=== PATIENT | female | born 1990 | race Caucasian/White ===

== ENCOUNTER 2018-11-09 16:47 | Emergency (ER) | payer OTHER ==
[2018-11-09] MEDS ORDERED: Sodium Chloride 0.9% 1000 ML 1,000 ML IV STA (17:14)
--- NOTE | 2018-11-09 17:17 | ERPHSYRPT ---
- History of Present Illness Time Seen by Provider: 11/09/18 17:14 Historian: patient Exam Limitations: no limitations Patient Subjective Stated Complaint: flank pain on the left since noon today. painful and frequent urination. Triage Nursing Assessment: alert and in no distress. pain on left flank area.started at noon today,. frequency and dysuria. Physician History: 28-year-old white female arrives with complaint of left flank pain symptoms since this morning positive nausea no vomiting positive dysuria no hematuria pain is described as sharp stabbing. Past medical history negative Past surgical history x2 Social history denies tobacco alcohol or illicit drug use Timing/Duration: today Activities at Onset: none Quality: sharpness, stabbing Abdominal Pain Onset Location: flank (left flank) Pain Radiation: no radiation Severity of Pain-Max: moderate Severity of Pain-Current: moderate Modifying Factors: Improves With: nothing Associated Symptoms: back (left flank pain), nausea, No chest pain, No diaphoresis, No diarrhea, No fever/chills, No fatigue, No headache, No heartburn , No loss of appetite, No neck pain, No rash, No shortness of breath, No syncope , No vomiting, No weakness Previous symptoms: no prior history Allergies/Adverse Reactions: Penicillins Allergy (Severe, Verified 11/09/18 17:39) "makes my throat swell up" Home Medications: Vits W-Ca,Fe,FA(<1Mg) [] 1 each PO DAILY 03/23/16 [History] Hx Pneumococcal Vaccination/Date Given: (unknown) - Review of Systems Constitutional: No Fever, No Chills Eyes: No Symptoms Ears, Nose, & Throat: No Symptoms Respiratory: No Cough, No Dyspnea Cardiac: No Chest Pain, No Edema, No Syncope Abdominal/Gastrointestinal: Nausea, No Abdominal Pain, No Vomiting, No Diarrhea , No Constipation, No Hematemesis, No Hematochezia, No Melena, No Dysphagia, No Appetite Changes Genitourinary Symptoms: Dysuria, Flank Pain (left flank pain), No Frequency, No Hematuria, No Hesitancy, No Incontinence, No Urgency, No Urinary Retention, No Menorrhagia, No , No Vaginal Bleeding, No Vaginal Discharge, No Vaginal Itching Musculoskeletal: Back Pain (left flank pain), No Arthralgias, No Neck Pain, No Deformity, No Fall, No Injury, No Joint Redness, No Joint Pain, No Joint Swelling, No Myalgias Skin: No Rash Neurological: No Symptoms Psychological: No Symptoms Endocrine: No Symptoms All Other Systems: Reviewed and Negative - Past Medical History Pertinent Past Medical History: Yes Neurological History: No Pertinent History ENT History: No Pertinent History Cardiac History: Other Respiratory History: No Pertinent History Endocrine Medical History: No Pertinent History Musculoskeletal History: No Pertinent History GI Medical History: No Pertinent History History: No Pertinent History Psycho-Social History: No Pertinent History Female Reproductive Disorders: No Pertinent History Other Medical History: rapid HR - Past Surgical History Past Surgical History: No Neuro Surgical History: No Pertinent History Cardiac: No Pertinent History Respiratory: No Pertinent History Gastrointestinal: No Pertinent History Genitourinary: No Pertinent History Musculoskeletal: No Pertinent History Female Surgical History: Section - Social History Smoking Status: Never smoker Exposure to second hand smoke: No Drug Use: none Patient Lives Alone: No - Female History Hx Now: No - Nursing Vital Signs Nursing Vital Signs: Initial Vital Signs Temperature 98.3 F 11/09/18 17:04 Pulse Rate 78 11/09/18 17:04 Respiratory Rate 18 11/09/18 17:04 Blood Pressure 111/81 11/09/18 17:04 O2 Sat by Pulse Oximetry 99 11/09/18 17:04 Pain Scale Pain Intensity 4 - Physical Exam General Appearance: mild distress, alert Eye Exam: PERRL/EOMI, eyes nml inspection Ears, Nose, Throat Exam: normal ENT inspection, pharynx normal, moist mucous membranes Neck Exam: normal inspection (this), non-tender, supple, full range of motion Respiratory Exam: normal breath sounds, lungs clear, No respiratory distress Cardiovascular Exam: regular rate/rhythm, capillary refill <2 sec Gastrointestinal/Abdomen Exam: soft, No tenderness, No mass Back Exam: normal inspection, normal range of motion, No CVA tenderness, No vertebral tenderness Extremity Exam: normal inspection, normal range of motion, pelvis stable Neurologic Exam: alert, oriented x 3, cooperative, 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 Probable enteritis, normal appendix. Small fatty umbilical hernia remaining abdomen/pelvis negative. Also scattered centimeters/subcentimeter mid mesenteric nodes with minimal stranding possible mesenteric adenitis) Ordered Tests: Active Orders 24 hr Category Date Time Status IV Insertion STAT Care 11/09/18 17:14 Active ABDOMEN AND PELVIS W/0 CONTRAS [CT] Stat Exams 11/09/18 18:16 Taken CBC W DIFF Stat Lab 11/09/18 17:30 Completed CMP Stat Lab 11/09/18 17:30 Completed HCG QUALITATIVE,SERUM Stat Lab 11/09/18 17:30 Completed UA W/RFX UR CULTURE Stat Lab 11/09/18 17:30 Completed Medication Summary Generic Name Dose Route Start Last Admin Trade Name Freq PRN Reason Stop Dose Admin Morphine Sulfate 4 mg 11/09/18 19:38 Morphine Sulfate 4 Mg Inj IV 11/09/18 19:39 STAT ONE Discontinued Medications Generic Name Dose Route Start Last Admin Trade Name Freq PRN Reason Stop Dose Admin Sodium Chloride 1,000 mls @ 999 mls/hr 11/09/18 17:14 11/09/18 17:34 Sodium Chloride 0.9% 1000 Ml IV 11/09/18 18:14 999 mls/hr .Q1H1M STA Administration Sodium Chloride Confirm 11/09/18 17:33 Sodium Chloride 0.9% 1000 Ml Administered 11/09/18 17:34 Dose 1,000 mls @ ud .ROUTE .STK-MED ONE Morphine Sulfate 4 mg 11/09/18 17:38 11/09/18 17:44 Morphine Sulfate 4 Mg Inj IV 11/09/18 17:39 4 mg STAT ONE Administration Morphine Sulfate Confirm 11/09/18 17:41 Morphine Sulfate 4 Mg Inj Administered 11/09/18 17:42 Dose 4 mg .ROUTE .STK-MED ONE Ondansetron HCl 4 mg 11/09/18 17:38 11/09/18 17:44 Zofran 4 Mg/2 Ml Vial IV 11/09/18 17:39 4 mg STAT ONE Administration Ondansetron HCl Confirm 11/09/18 17:41 Zofran 4 Mg/2 Ml Vial Administered 11/09/18 17:42 Dose 4 mg .ROUTE .STK-MED ONE Potassium Chloride 40 meq 11/09/18 19:35 Klor Con 10 Meq PO 11/09/18 19:36 STAT ONE Lab/Rad Data: Laboratory Result Diagrams 11/09/18 17:30 11/09/18 17:30 Laboratory Results 11/09/18 11/09/18 11/09/18 Range/Units 17:30 17:30 17:30 WBC (4.0-10.5) K/mm3 RBC (4.1-5.4) M/mm3 Hgb (12.0-16.0) gm/dl Hct (35-47) % MCV (78-100) fl MCH (26-32) pg MCHC (32-36) g/dl RDW (11.5-14.0) % Plt Count (150-450) K/mm3 MPV (6-9.5) fl Gran % (36.0-66.0) % Eos # (Auto) (0-0.5) Absolute Lymphs (auto) (1.0-4.6) Absolute Monos (auto) (0.0-1.3) Lymphocytes % (24.0-44.0) % Monocytes % (0.0-12.0) % Eosinophils % (0.00-5.0) % Basophils % (0.0-0.4) % Absolute Granulocytes (1.4-6.9) Basophils # (0-0.4) Sodium 142 (137-145) mmol/L Potassium 3.2 L (3.5-5.1) mmol/L Chloride 108 H (98-107) mmol/L Carbon Dioxide 22 (22-30) mmol/L Anion Gap 14.8 (5-15) MEQ/L BUN 7 (7-17) mg/dL Creatinine 0.47 L (0.52-1.04) mg/dL Estimated GFR > 60.0 ML/MIN Glucose 97 (74-106) mg/dL Calcium 9.3 (8.4-10.2) mg/dL Total Bilirubin 0.30 (0.2-1.3) mg/dL AST 32 (14-36) U/L ALT 37 H (0-35) U/L Alkaline Phosphatase 75 (38-126) U/L Serum Total Protein 7.7 (6.3-8.2) g/dL Albumin 4.3 (3.5-5.0) g/dL Serum , Qual NEGATIVE (Negative) Urine Color STRAW (YELLOW) Urine Appearance CLEAR (CLEAR) Urine pH 6.0 (5-6) Ur Specific [place] 1.004 (1.005-1.025) Urine Protein NEGATIVE (Negative) Urine Ketones NEGATIVE (NEGATIVE) Urine Blood MODERATE (0-5) [place]/ul Urine Nitrite NEGATIVE (NEGATIVE) Urine Bilirubin NEGATIVE (NEGATIVE) Urine Urobilinogen NEGATIVE (0-1) mg/dL Ur Leukocyte Esterase NEGATIVE (NEGATIVE) Urine WBC (Auto) NONE (0-5) /HPF Urine RBC (Auto) NONE (0-2) /HPF U Epithel Cells (Auto) RARE (FEW) /HPF Urine Bacteria (Auto) NONE (NEGATIVE) /HPF Urine Mucus (Auto) SLIGHT (NEGATIVE) /HPF Urine Culture Reflexed NO (NO) Urine Glucose NEGATIVE (NEGATIVE) mg/dL 11/09/18 Range/Units 17:30 WBC 5.0 (4.0-10.5) K/mm3 RBC 4.22 (4.1-5.4) M/mm3 Hgb 9.7 L (12.0-16.0) gm/dl Hct 31.6 L (35-47) % MCV 74.9 L (78-100) fl MCH 22.9 L (26-32) pg MCHC 30.7 L (32-36) g/dl RDW 16.8 H (11.5-14.0) % Plt Count 377 (150-450) K/mm3 MPV 10.5 H (6-9.5) fl Gran % 56.3 (36.0-66.0) % Eos # (Auto) 0.06 (0-0.5) Absolute Lymphs (auto) 1.55 (1.0-4.6) Absolute Monos (auto) 0.55 (0.0-1.3) Lymphocytes % 31.1 (24.0-44.0) % Monocytes % 11.0 (0.0-12.0) % Eosinophils % 1.2 (0.00-5.0) % Basophils % 0.4 (0.0-0.4) % Absolute Granulocytes 2.81 (1.4-6.9) Basophils # 0.02 (0-0.4) Sodium (137-145) mmol/L Potassium (3.5-5.1) mmol/L Chloride (98-107) mmol/L Carbon Dioxide (22-30) mmol/L Anion Gap (5-15) MEQ/L BUN (7-17) mg/dL Creatinine (0.52-1.04) mg/dL Estimated GFR ML/MIN Glucose (74-106) mg/dL Calcium (8.4-10.2) mg/dL Total Bilirubin (0.2-1.3) mg/dL AST (14-36) U/L ALT (0-35) U/L Alkaline Phosphatase (38-126) U/L Serum Total Protein (6.3-8.2) g/dL Albumin (3.5-5.0) g/dL Serum , Qual (Negative) Urine Color (YELLOW) Urine Appearance (CLEAR) Urine pH (5-6) Ur Specific [place] (1.005-1.025) Urine Protein (Negative) Urine Ketones (NEGATIVE) Urine Blood (0-5) Rosales/ul Urine Nitrite (NEGATIVE) Urine Bilirubin (NEGATIVE) Urine Urobilinogen (0-1) mg/dL Ur Leukocyte Esterase (NEGATIVE) Urine WBC (Auto) (0-5) /HPF Urine RBC (Auto) (0-2) /HPF U Epithel Cells (Auto) (FEW) /HPF Urine Bacteria (Auto) (NEGATIVE) /HPF Urine Mucus (Auto) (NEGATIVE) /HPF Urine Culture Reflexed (NO) Urine Glucose (NEGATIVE) mg/dL - Progress Progress: improved Progress Note: 11/09/18 17:22 This is a 28-year-old white female arrives with complaint of left flank pain which is described as sharp and stabbing symptoms since this morning she states she's had some nausea no vomiting she has had some dysuria no hematuria. Patient is offered pain medication she does not want any at this time of also offered her Zofran for nausea she does not want this as well. Will go ahead and obtain appropriate laboratory studies the patient normal saline 1 L. 11/09/18 19:39 Patient was normal CBC hemoglobin and hematocrit are 9.7 31.6 respectively urinalysis some blood but no red cells hCG is negative chemistry essentially normal Patient's CT of the abdomen remarkable for several small bowel loops in the left abdomen appear with bowel wall thickening probable enteritis. Normal appendix. Small fatty umbilical hernia there is also scattered centimeters/ subcentimeter mid mesenteric nodes with minimal stranding possible mesenteric adenitis Patient improved not completely pain-free with normal saline morphine 4 mg IV and Zofran. Will plan to give patient an additional 4 mg of morphine in the home with [place] and Zofran place patient on clear fluids patient to followup with her family . Fanny if problems - Departure Departure Disposition: Home Clinical Impression: Left flank pain, Enteritis, Mesenteric adenitis Condition: Fair Critical Care Time: No Referrals: JANAK PANIAGUA [Primary Care Provider] - Additional Instructions: Return home. Plenty of fluids. Clear fluids 24-48 hours if abdominal or flank pain. [place] as prescribed as needed for left flank pain. Zofran as prescribed as needed for nausea. Followup with your family . Fanny for acute distress or for severe symptoms. Prescriptions: Hydrocodone/APAP 5-325 Tab^^^ [[place] 5-325 Tablet^^^] 1 tab PO Q6HPRN PRN #10 tablet MDD 6 PRN Reason: Pain Ondansetron ODT 4 MG [Zofran Odt 4 mg] 4 mg PO Q6H PRN PRN #10 tab.rapdis PRN Reason: nausea and vomiting
[2018-11-09] MEDS ORDERED: Sodium Chloride 0.9% 1000 ML 1,000 ML ONE (17:33)
[2018-11-09] MEDS ORDERED: Zofran 4 MG/2 ML VIAL IV ONE (17:38)
[2018-11-09] MEDS ORDERED: MORPHINE SULFATE 4 MG INJ IV ONE ×2 (17:38→19:38)
[2018-11-09] MEDS ORDERED: Zofran 4 MG/2 ML VIAL ONE (17:41)
[2018-11-09] MEDS ORDERED: MORPHINE SULFATE 4 MG INJ ONE ×2 (17:41→19:46)
[2018-11-09 17:48] LABS: ALBUMIN 4.3 g/dL (3.5-5.0); ALKALINE PHOSPHATASE 75 U/L (38-126); ANION GAP 14.8 MEQ/L (5-15); BLOOD UREA NITROGEN 7 mg/dL (7-17); CHLORIDE 108 mmol/L (98-107); Calcium 9.3 mg/dL (8.4-10.2); Carbon Dioxide 22 mmol/L (22-30); Creatinine 1 0.47 mg/dL (0.52-1.04); Glucose 97 mg/dL (74-106); Potassium 3.2 mmol/L (3.5-5.1); SGOT/AST 32 U/L (14-36); SGPT/ALT 37 U/L (0-35); SODIUM 142 mmol/L (137-145); Total Protein 7.7 g/dL (6.3-8.2)
[2018-11-09 17:59] LABS: Appearance CLEAR (CLEAR); Bilirubin NEGATIVE (NEGATIVE); Blood MODERATE Ery/ul (0-5); Epithelial Cells RARE /HPF (FEW); Glucose NEGATIVE (NEGATIVE); Ketones NEGATIVE (NEGATIVE); Leukocyte Esterase NEGATIVE (NEGATIVE); Mucus SLIGHT /HPF (NEGATIVE); Nitrite NEGATIVE (NEGATIVE); Protein,Urine Dip NEGATIVE (Negative); Specific Gravity 1.004 (1.005-1.025); Urobilinogen NEGATIVE mg/dL (0-1)
[2018-11-09 18:05] LABS: BASOPHIL % 0.4 % (0.0-0.4); Basophil (Absolute #) 0.02 (0-0.4); Eosinophil % 1.2 % (0.00-5.0); Eosinophil (Absolute #) 0.06 (0-0.5); Granulocyte Absolute (ANC) 2.81 (1.4-6.9); Granulocytes % 56.3 % (36.0-66.0); Hematocrit 31.6 % (35-47); Hemoglobin 9.7 gm/dl (12.0-16.0); Lymphocyte (Absolute #) 1.55 (1.0-4.6); Lymphocytes % 31.1 % (24.0-44.0); Mean Cell Volume 74.9 fl (78-100); Mean Corpuscular Hgb Concent. 30.7 g/dl (32-36); Mean Platelet Volume 10.5 fl (6-9.5); Monocyte (Absolute #) 0.55 (0.0-1.3); Platelet Count 377 K/mm3 (150-450); Red Blood Count 4.22 M/mm3 (4.1-5.4); Red Cell Distribution Width 16.8 % (11.5-14.0)
[2018-11-09 18:08] LABS: Mean Corpuscular Hemoglobin 22.9 pg (26-32)
[2018-11-09 18:31] VITALS: PULSE 74
[2018-11-09 19:35] VITALS: O2SAT 99
[2018-11-09] MEDS ORDERED: Klor Con 10 MEQ PO ONE ×2 (19:35→19:38)
[2018-11-09 19:47] VITALS: BP 106/64
[2018-11-10 03:48] LABS: Slide Review 1 YES
--- NOTE | 2018-11-10 08:49 | XRAY ---
Indication: Left flank pain. Multiple contiguous axial images obtained through the abdomen and pelvis without contrast as ordered. Comparison: None Lung bases demonstrates minimal fibrosis/scarring. No infiltrate or effusion. Heart is not enlarged. Noncontrasted stomach and bowel loops appear nonobstructed. Several small bowel loops in the left abdomen demonstrates mild fluid distention with wall thickening favoring enteritis. Normal appendix. There are scattered centimeter/subcentimeter mid abdomen mesenteric nodes with minimal stranding, possible adenitis. No free fluid/air. Remaining liver, gallbladder, pancreas, spleen, adrenal glands, kidneys, ureters, bladder, uterus, and aorta appear unremarkable for noncontrast exam. Osseous structures intact with mild double curvature scoliosis. Small fatty umbilical hernia. Impression: 1. Fluid distended small bowel loops with wall thickening favoring enteritis. 2. Scattered small mesenteric nodes with stranding favoring mesenteric adenitis. 3. Incidental fatty umbilical hernia. CT DI 22.87
== END 2018-11-09 19:54 | disposition home or self-care (01) ==
LOC: ED 16:47
DX: R10.9 Unspecified abdominal pain (principal); I88.0 Nonspecific mesenteric lymphadenitis; K52.9 Noninfective gastroenteritis and colitis, unspecified; K42.9 Umbilical hernia without obstruction or gangrene
CPT/HCPCS: 36000; 36415; 74176; 80053; 81001; 81025; 85025; 96360; 96361; 96365; 96374; 96375; 99284; J2270; J2405; A9270-GY

== ENCOUNTER 2022-12-03 06:23 | Day surgery (SDC) | payer OTHER ==
[2022-12-03] MEDS ORDERED: CLINDAMYCIN-D5W 900 MG/50 ML*** 900 MG/50 ML BAG IV STA (06:32)
[2022-12-03 06:38] LABS: HCG URINE TEST NEGATIVE (NEGATIVE)
[2022-12-03] MEDS ORDERED: Lactated Ringers 1,000 ML IV SCH (07:00)
[2022-12-03] MEDS ORDERED: CLINDAMYCIN-D5W 900 MG/50 ML*** 900 MG/50 ML BAG IV ONE (07:06)
[2022-12-03] MEDS ORDERED: Lactated Ringers 1,000 ML IV ONE ×2 (07:06→09:35)
[2022-12-03] MEDS ORDERED: Versed 2 MG/2 ML Injection ONE (09:26)
[2022-12-03] MEDS ORDERED: SUBLIMAZE 100 MCG/2 ML ONE ×2 (09:26→10:10)
[2022-12-03] MEDS ORDERED: Quelicin Fliptop 200 MG/10 ML ONE (09:27)
[2022-12-03] MEDS ORDERED: DEXMEDETOMIDINE 80 MCG/20ML-NS IV ONE (09:27)
[2022-12-03] MEDS ORDERED: Decadron 4 MG INJ ONE (09:27)
[2022-12-03] MEDS ORDERED: TORAdol 30 mg Injection ONE (09:27)
[2022-12-03] MEDS ORDERED: Zofran 4 MG/2 ML VIAL ONE (09:27)
[2022-12-03] MEDS ORDERED: Xylocaine-Mpf 2% 5 Ml Vial ONE (09:27)
[2022-12-03] MEDS ORDERED: DIPRIVAN 200 MG/20 ML IV ONE (09:27)
[2022-12-03] MEDS ORDERED: Transderm Scop 1.5MG Patch TOP PRN (09:28)
[2022-12-03] MEDS ORDERED: OFIRMEV 100 ML IV ONE (09:34)
[2022-12-03] MEDS ORDERED: Pre-Attached Lta Kit TP ONE (09:34)
[2022-12-03] MEDS ORDERED: Marcaine Mpf 0.5% Vial 30 Ml ONE (09:35)
[2022-12-03] MEDS ORDERED: Xylocaine 1% Vial 30 ML PF IJ ONE (09:35)
--- NOTE | 2022-12-03 11:18 | XRAY ---
Indication: Left foot navicular resection and posterior tibial tendon debridement. Intraoperative fluoroscopy provided for 1 minute 3 seconds. 9 digital spot images submitted for interpretation ultimately demonstrate partial resection medial aspect navicular bone and instrumentation mid foot. Correlate with intraoperative findings/report.
[2022-12-03] MEDS ORDERED: Hydromorphone 1 mg/ml Injection ONE (11:51)
[2022-12-03 12:08] VITALS: O2SAT 97
[2022-12-03] MEDS ORDERED: Zofran 4 MG/2 ML VIAL IV STA (12:20)
[2022-12-03 12:39] VITALS: BP 101/65; PULSE 68
--- NOTE | 2022-12-03 14:14 | XRAY ---
One minute and 3 seconds of fluoroscopy was used in surgery for a left foot navicular resection and posterior tibial tendon debridement.
--- NOTE | 2022-12-03 15:27 | OP ---
SURGERY DATE/TIME: 12/03/2022 0939 PREOPERATIVE DIAGNOSES: 1) Left foot pain. 2) Posterior tibial tendon dysfunction left foot. 3) Os naviculare left foot. POSTOPERATIVE DIAGNOSES: 1) Left foot pain. 2) Posterior tibial tendon dysfunction left foot. 3) Os naviculare left foot. PROCEDURES: 1) Resection of os naviculare. 2) Debridement of posterior tibial tendon with advancement. 3) Cyst curettage navicular. SURGEON: Leroy Neal DPM. RADIATION OFFICER: None. ANESTHESIA: General. HEMOSTASIS: Thigh tourniquet set 300 mm of Mercury for approximately 25 total tourniquet minutes. MATERIALS: Two - 1.45 JuggerKnot with BroadBand, 2-0 Vicryl, 4-0 Monocryl, 3-0 Nylon, 4-0 PDS. INJECTABLES: 30 cc of 1:1 mixture of 1% lidocaine plain and 0.5% bupivacaine plain injected in an ankle block-type fashion to the left ankle. INDICATION FOR SURGERY: Rena is a very pleasant 32-year-old female well-known to my service for pain at the insertion of the posterior tibial tendon as well as symptoms similar to that of stage I posterior tibial tendon dysfunction. The patient did have some pinpoint pain at the insertion of the posterior tibial tendon as well as with compression of the navicular. On x-ray it did appear to be cystic in nature. However, MRI was obtained demonstrating no significant inflammation or disease of the posterior tibial tendon or to the cystic formation of the navicular. At that time discussion was held with the patient due to the fact that she has failed immobilization, physical therapy and multiple other conservative therapies in regards to the potential for success for operation. Given the patient's nonradiographic appearance of diseased tendon or cyst formation within the navicular, or an os trigonum on x-ray or os naviculare on x-ray, the patient wished to proceed with surgical intervention if there was a possibility this would help. Given the patient's clinical inspection, I do believe that surgery will help and there is some degree of at least insertional posterior tibial tendon dysfunction as well as potential for cyst formation. All risks, complications and benefits had been discussed with the patient including but not limited to infection, hematoma, seroma, possibility of delayed wound healing or nonwound healing and possibility of failure of surgical intervention, possibility of surgical intervention at a later date had been discussed. The patient also does have the risk of delayed tendon to bone interface as well as delayed skin healing. The patient understands all of these risks. Plenty of time was allowed for the patient to ask questions which were answered to her apparent satisfaction. It is with that we decided to proceed. DESCRIPTION OF PROCEDURE AND FINDINGS: The patient is brought into the OR and placed on the OR table in the supine position. At this time general anesthesia was administered until the patient was sedated. A well-padded thigh tourniquet was applied to the patient's left thigh and the tourniquet was set to 300 mm of Mercury. At this time, the left lower extremity was prepped and draped in the typical sterile fashion and lowered onto the surgical field. At this time attention was directed under fluoroscopic guidance and naviculare landmarks were identified and a linear incision was carried down following the path of the posterior tibial tendon. At this time careful dissection was carried down to the level of the tenosynovium of the posterior tibial tendon being careful not to damage any neurovascular structures along the way. At this time the tenosynovium was identified and some yellowing was seen at the insertion of the posterior tibial tendon at the navicular. At this time tenosynovitis was resected and handed off the field. At this time the tendon was reflected off of the navicular which was fairly prominent. A sagittal saw 18 mm in size was utilized to resect a portion of the naviculare. Under fluoroscopic guidance the cyst was identified within the navicular. Bone was probed in multiple locations using a Owen. At the proximal extent of the bone there was no fairly hard bone. However once getting to the suspected cyst formation, the bone was extremely soft and the Owen passed through the cystic formation. From that standpoint decision was made to curettage the cyst. We also utilized the footprint of the cyst to anchor the tendon at the end of the case. Following this the 10 blade was utilized to partially split the posterior tibial tendon. Any diseased nonviable tendon was resected and a 4-0 PDS was utilized to repair the tendon at this time. A 1.5 JuggerKnot was introduced under fluoroscopic guidance making sure not to damage any neurovascular structures or violate the joint. At this time the two anchors were then utilized to reapproximate and bring the posterior tibial tendon into the footprint of the cyst. Following this the surgical site was cleansed with sterile saline. 2-0 Vicryl was utilized to close the capsule, 4-0 Monocryl was utilized to close the subcutaneous skin and 3-0 Nylon was utilized in a horizontal mattress-type fashion to coapt the skin edges. A dressing consisting of Betadine, Adaptic, 4x4 and a well-padded posterior splint with Sugar-Tong was applied to the patient's left lower extremity with the foot orthogonal relative to longitudinal axis of the leg. The patient was then reversed from anesthesia and returned to the postoperative anesthesia care unit with vital signs stable and vascular status intact. The patient handled the anesthesia as well as procedure without significant complication. Postoperative orders as indicated in the patient's discharge chart.
== END 2022-12-03 12:52 | disposition home or self-care (01) ==
LOC: SDC 06:23
PROVIDERS: ATTEND Podiatrist Foot & Ankle Surgery
DX: M76.822 Posterior tibial tendinitis, left leg (principal); M79.672 Pain in left foot; M21.6X2 Other acquired deformities of left foot
CPT/HCPCS: 73630; 76000; 81025; C1713; J0330; J1100; J1170; J1885; J2001; J2250; J2405; J2704; J3010; A9270-GY

== ENCOUNTER 2022-12-21 14:16 | Emergency (ER) | payer OTHER ==
[2022-12-21 14:37] VITALS: BP 118/82; PULSE 75; O2SAT 99
--- NOTE | 2022-12-21 15:14 | ERPHSYRPT ---
- History of Present Illness Time Seen by Provider: 12/21/22 14:30 Source: patient Exam Limitations: no limitations Patient Subjective Stated Complaint: Patient states she had left foot surgery on 12/03/22 and has a mid calf cast in place. States she was walking down stairs and her railing gave out and she fell down 2 stairs. Was having extreme pain. Also pain in left wrist. Supposed to be total non-weight bearing Triage Nursing Assessment: Pt alert & oriented. To ED room with assistance of knee scooter. Respirations easy and non-labored. Physician History: Patient is a 32-year-old female patient of Dr. Harper our medical instrument technician presents to our ED postop day 18 for evaluation of left foot pain. Patient was nonweightbearing postsurgically. Patient states she was descending a flight of steps when the railing gave way causing her to fall down 2 steps. Patient complains of pain at her left wrist and left foot. Patient has a short leg cast of her left lower extremity. No other injuries reported. No BHT or LOC. No neck pain. The fall was mechanical. The fall was not associated with any neuro or cardiovascular symptomology. Patient otherwise feels well. Patient declined pain medication. Patient voices no other complaints or concerns at this time. Portions of this note were created with voice recognition technology. There may be grammatical, spelling, punctuation or sound alike errors Method of Injury: fell Occurred: just prior to arrival Quality: constant Severity of Pain-Max: moderate Severity of Pain-Current: mild Lower Extremities Pain: foot: left Modifying Factors: Improves With: other Associated Symptoms: none Allergies/Adverse Reactions: Penicillins Allergy (Severe, Verified 12/03/22 06:51) "makes my throat swell up" Home Medications: Bupropion HCl Xl 150 mg [Wellbutrin XL 150 MG] 150 mg PO DAILY 11/23/22 [History] Aspirin EC 325 mg [Ecotrin 325 MG] 325 mg PO DAILY 12/21/22 [History] Hydrocodone/Acetaminophen [Hydrocodone-Acetamin 7.5-325] 1 tab PO Q6H PRN PRN 12/21/22 [History] Hx Tetanus, Diphtheria Vaccination/Date Given: Yes (2 years ago) Hx Pneumococcal Vaccination/Date Given: (unknown) Travel Risk - International Travel Have you traveled outside of the country in past 3 weeks: No - Coronavirus Screening Are you exhibiting any of the following symptoms?: No Close contact with a COVID-19 positive Pt in past 14-21 Days: No - Vaccine Status Have you recieved a Covid-19 vaccination: Yes Webbing Tacker: Moderna - Vaccination Dates Date of 2cond Vaccination (if applicable): 06/26 - Review of Systems Constitutional: No Symptoms, No Fever, No Chills Eyes: No Symptoms Ears, Nose, & Throat: No Symptoms Respiratory: No Symptoms, No Cough, No Dyspnea Cardiac: No Symptoms, No Chest Pain, No Edema, No Syncope Abdominal/Gastrointestinal: No Symptoms, No Abdominal Pain, No Nausea, No Vomiting, No Diarrhea Genitourinary Symptoms: No Symptoms, No Dysuria Musculoskeletal: No Back Pain, No Neck Pain Skin: No Rash Neurological: No Dizziness, No Focal Weakness, No Sensory Changes Psychological: No Symptoms Endocrine: No Symptoms All Other Systems: Reviewed and Negative - Past Medical History Pertinent Past Medical History: Yes Neurological History: No Pertinent History ENT History: No Pertinent History Cardiac History: Other Respiratory History: No Pertinent History Endocrine Medical History: No Pertinent History Musculoskeletal History: No Pertinent History GI Medical History: No Pertinent History History: No Pertinent History Psycho-Social History: Anxiety, Depression Female Reproductive Disorders: No Pertinent History Other Medical History: rapid heart rate - Past Surgical History Past Surgical History: Yes Neuro Surgical History: No Pertinent History Cardiac: No Pertinent History Respiratory: No Pertinent History Gastrointestinal: No Pertinent History, Hernia Repair Genitourinary: No Pertinent History Musculoskeletal: Other Female Surgical History: Section, Tubal Ligation Other Surgical History: unterine ablation, umbilical hernia repair, left foot surgery - Social History Smoking Status: Never smoker Exposure to second hand smoke: No Drug Use: none Patient Lives Alone: No - Female History Hx Last Menstrual Period: 12/20/22 Hx Now: No - Nursing Vital Signs Nursing Vital Signs: Initial Vital Signs Temperature 98.3 F 12/21/22 14:25 Pulse Rate 75 12/21/22 14:25 Respiratory Rate 16 12/21/22 14:25 Blood Pressure 118/82 12/21/22 14:25 O2 Sat by Pulse Oximetry 99 12/21/22 14:25 Pain Scale Pain Intensity 3 - Physical Exam General Appearance: no apparent distress, alert Eyes, Ears, Nose, Throat Exam: moist mucous membranes Neck Exam: non-tender, supple Cardiovascular/Respiratory Exam: chest non-tender, normal breath sounds, regular rate/rhythm, no respiratory distress Gastrointestinal/Abdominal Exam: non-tender, soft, guarding Back Exam: normal inspection, No vertebral tenderness Hips Exam: bilateral: non-tender, normal inspection, normal range of motion, no evidence of injury Legs Exam: bilateral leg: non-tender, normal inspection, normal range of motion, no evidence of injury Knees Exam: bilateral knee: non-tender, normal inspection, normal range of motion, no evidence of injury Ankle Exam: bilateral ankle: non-tender, normal inspection, normal range of motion, no evidence of injury Foot Exam: right foot: non-tender, normal inspection, normal range of motion, no evidence of injury, left foot: pain, soft tissue tenderness, other (Cap refill left lower extremity less than 2 seconds. Short leg cast intact.) Neuro/Tendon Exam: normal sensation, normal motor functions Mental Status Exam: alert, oriented x 3, cooperative Skin Exam: normal color, warm, dry SpO2 Interpretation: normal SpO2: 99 O2 Delivery: Room Air - Course Nursing assessment & vital signs reviewed: Yes - Radiology Exams Foot X-ray Interpretation: Teleradiologist Report (Heel spur, otherwise no fracture dislocation. Study limited due to cast material) Wrist X-ray Interpretation: Teleradiologist Report (Negative wrist x-ray no fracture dislocation no soft tissue abnormalities) Ordered Tests: Active Orders 24 hr Category Date Time Status FOOT (MINIMUM 3 VIEWS) Stat Exams 12/21/22 15:02 Completed WRIST (MIN 3 VIEWS) Stat Exams 12/21/22 15:03 Completed - Progress Progress: improved Progress Note: Patient is a 32-year-old female presents to our ED for evaluation of left foot and left ankle pain. Patient is postop day 18. Patient's medical instrument technician is on staff at our hospital. We tried contacting her medical instrument technician but he had just left the office. Patient currently has a follow-up appointment scheduled for Tuesday. Patient declined pain medication. We ordered x-rays of both left wrist and left foot. Both x-rays are negative for acute pathology. Heel spur observed at the left foot. Left foot x-ray limited due to cast material. However the physical exam that we were able to complete shows that her digits are neurovascular intact distally. Cap refill less than 2 seconds. Patient resting comfortably. Patient understands limitations of our studies today. Significant other at bedside. They voiced no other complaints or concerns at this time. Portions of this note were created with voice recognition technology. There may be grammatical, spelling, punctuation or sound alike errors Complexity of problem addressed is low acute uncomplicated No critical care time Complexity data reviewed and analyzed is moderate. X-rays reviewed. No fracture dislocations observed. Observation is consistent with formal report as per our radiologist. Findings were correlated clinically with history and physical. Plan of care established based on clinical correlation Risk of complication and or risk morbidity/mortality patient management is minimal. Patient declined pain medication. No therapeutic intervention administered. Patient received an x-ray only. No fracture dislocation observed. Patient to remain nonweightbearing as ordered by her surgeon. Patient be discharged home. Vital stable. Patient agrees to follow-up with her medical instrument technician as scheduled on Tuesday. However we gave patient referral to Ortho in the event that she needs to see her medical instrument technician sooner than later. Plan of care discussed with patient. She voices no other complaints or concerns at this time. Patient significant other at bedside. He states he is going to repair the hand and right leg gave way causing her patient to fall. Portions of this note were created with voice recognition technology. There may be grammatical, spelling, punctuation or sound alike errors 12/21/22 15:37 12/21/22 15:40 Counseled pt/family regarding: diagnosis, need for follow-up, rad results - Departure Departure Disposition: Home Clinical Impression: Fall, Foot pain, left, Left wrist pain Condition: Stable Critical Care Time: No Referrals: CATARINO SPANN, MICROBIOLOGY SOIL SCIENTIST [Primary Care Provider] - Follow up/PCP as directed Additional Instructions: Discharge/Care Plan OLIVEABHISHEK ZHOU was seen on 12/21/22 in the Emergency Room. The patient was counseled regarding Diagnosis,Lab results, Imaging studies, need for follow up and when to return to the Emergency Room. Prescriptions given: Discharge Note I have spoken with the patient and/or caregivers. I have explained the patient's condition, diagnosis and treatment plan based on the information available to me at this time. I have answered the patient's and/or caregiver's questions and addressed any concerns. The patient and/or caregivers have as good understanding of the patient's diagnosis, condition and treatment plan as can be expected at this point. The vital signs have been stable. The patient's condition is stable and appropriate for discharge from the emergency department. The patient will pursue further outpatient evaluation with the primary care physician or other designated or consulting physician as outlined in the d ischarge instructions. The patient and/or caregivers are agreeable to this plan of care and follow-up instructions have been explained in detail. The patient and/or caregivers have received these instruction. The patient/and or caregivers are aware that any significant change in condition or worsening of symptoms should prompt an immediate return to this or the closest emergency department or call 911.
--- NOTE | 2022-12-21 15:18 | XRAY ---
Indication: Pain following fall. Comparison: June 30, 2009 3 view left wrist obtained. Again no bony, articular, or soft tissue abnormalities.
--- NOTE | 2022-12-21 15:18 | XRAY ---
Indication: Pain following fall. Comparison: December 13, 2022 3 view left foot demonstrates new overlying cast material limiting evaluation for fine bony detail. Stable tiny heel spurs. No other bony, articular, or soft tissue abnormalities.
== END 2022-12-21 15:51 | disposition home or self-care (01) ==
LOC: ED 14:16
DX: M79.672 Pain in left foot (principal); M79.642 Pain in left hand; W10.9XXA Fall (on) (from) unspecified stairs and steps, initial encounter; Z79.891 Long term (current) use of opiate analgesic; Z79.899 Other long term (current) drug therapy
CPT/HCPCS: 73110; 73630; 99282

== ENCOUNTER 2023-12-30 21:09 | Emergency (ER) | payer SELFPAY ==
--- NOTE | 2023-12-30 21:12 | ERPHSYRPT ---
- History of Present Illness Time Seen by Provider: 12/30/23 21:12 Source: patient Exam Limitations: no limitations Physician History: This is a 33-year-old white female patient who has had chronic recurrent problems with her left foot and ankle in the past and was scheduled to see Dr. Harper on 12/26/2023 but did not attend that appointment. Patient was walking down the stairs today when she missed the last 2 steps injuring her left foot and ankle. Patient rates her pain a 7 out of 10 and it is a constant aching and throbbing. This injury occurred over 24 hours ago. Method of Injury: fell Occurred: yesterday Quality: aching, throbbing Severity of Pain-Max: moderate Severity of Pain-Current: moderate Lower Extremities Pain: foot: left, ankle: left Modifying Factors: Improves With: movement Associated Symptoms: other (To bear weight but can do so) Allergies/Adverse Reactions: Penicillins Allergy (Severe, Verified 12/30/23 21:15) "makes my throat swell up" Home Medications: Buspirone HCl 7.5 mg PO DAILY 12/30/23 [History] Hx Tetanus, Diphtheria Vaccination/Date Given: Yes (2 years ago) Hx Pneumococcal Vaccination/Date Given: (unknown) Travel Risk - International Travel Have you traveled outside of the country in past 3 weeks: No - Review of Systems Constitutional: No Symptoms Eyes: No Symptoms Ears, Nose, & Throat: No Symptoms Respiratory: No Symptoms Cardiac: No Symptoms Abdominal/Gastrointestinal: No Symptoms Genitourinary Symptoms: No Symptoms Musculoskeletal: Injury (Left foot and ankle), Other Skin: No Symptoms Neurological: No Symptoms Psychological: No Symptoms Endocrine: No Symptoms Hematologic/Lymphatic: No Symptoms Immunological/Allergic: No Symptoms All Other Systems: Reviewed and Negative - Past Medical History Pertinent Past Medical History: Yes Neurological History: No Pertinent History ENT History: No Pertinent History Cardiac History: Other Respiratory History: No Pertinent History Endocrine Medical History: No Pertinent History Musculoskeletal History: No Pertinent History GI Medical History: No Pertinent History History: No Pertinent History Psycho-Social History: Anxiety, Depression Female Reproductive Disorders: No Pertinent History Other Medical History: rapid heart rate - Past Surgical History Past Surgical History: Yes Neuro Surgical History: No Pertinent History Cardiac: No Pertinent History Respiratory: No Pertinent History Gastrointestinal: No Pertinent History, Hernia Repair Genitourinary: No Pertinent History Musculoskeletal: Other Female Surgical History: Section, Tubal Ligation Other Surgical History: unterine ablation, umbilical hernia repair, left foot surgery - Social History Smoking Status: Never smoker Exposure to second hand smoke: No Drug Use: none Patient Lives Alone: No - Nursing Vital Signs Nursing Vital Signs: Initial Vital Signs Pulse Rate 85 12/30/23 21:14 Blood Pressure 117/80 12/30/23 21:14 O2 Sat by Pulse Oximetry 99 12/30/23 21:14 Pain Scale Pain Intensity 7 - Physical Exam General Appearance: no apparent distress, alert, anxiety Eyes, Ears, Nose, Throat Exam: normal ENT inspection, moist mucous membranes Neck Exam: normal inspection, non-tender, supple, full range of motion Cardiovascular/Respiratory Exam: chest non-tender, no respiratory distress Gastrointestinal/Abdominal Exam: non-tender Back Exam: normal inspection, normal range of motion, No CVA tenderness, No vertebral tenderness Hips Exam: bilateral: non-tender, normal inspection, normal range of motion, no evidence of injury Legs Exam: bilateral leg: non-tender, normal inspection, normal range of motion, no evidence of injury Knees Exam: bilateral knee: non-tender, normal inspection, normal range of motion, no evidence of injury Ankle Exam: right ankle: non-tender, normal inspection, normal range of motion, no evidence of injury, left ankle: limited range of motion, soft tissue tenderness, swelling (Lateral aspect) Foot Exam: right foot: non-tender, left foot: soft tissue tenderness, bilateral foot: normal inspection, normal range of motion, no evidence of injury Neuro/Tendon Exam: normal sensation, normal motor functions, normal tendon functions, responds to pain, no evidence tendon injury Mental Status Exam: alert, oriented x 3, cooperative Skin Exam: normal color, warm, dry SpO2 Interpretation: normal O2 Delivery: Room Air - Course Nursing assessment & vital signs reviewed: Yes Ordered Tests: Active Orders 24 hr Category Date Time Status Carlos Bandage Application -[facility] STAT Care 12/30/23 22:23 Active Cold Application STAT Care 12/30/23 21:18 Active ANKLE (3 VIEWS) Stat Exams 12/30/23 21:13 Taken FOOT (MINIMUM 3 VIEWS) Stat Exams 12/30/23 21:13 Completed Medication Summary Discontinued Medications Generic Name Dose Route Start Last Admin Trade Name Freq PRN Reason Stop Dose Admin Oxycodone/Acetaminophen 1 tab 12/30/23 22:24 12/30/23 22:27 Oxycodone Hcl/Apap 5 Mg/325 Mg Tablet PO 12/30/23 22:25 1 tab STAT STA Administration Oxycodone/Acetaminophen Confirm 12/30/23 22:27 Oxycodone Hcl/Apap 5 Mg/325 Mg Tablet Administered 12/30/23 22:28 Dose 1 tab .ROUTE .STK-MED ONE Oxycodone/Acetaminophen 2 tab 12/30/23 22:38 12/30/23 22:45 Oxycodone Hcl/Apap 5 Mg/325 Mg Tablet PO 12/30/23 22:39 2 tab SENT HOME W/ PATIENT STA Administration Oxycodone/Acetaminophen Confirm 12/30/23 22:42 Oxycodone Hcl/Apap 5 Mg/325 Mg Tablet Administered 12/30/23 22:43 Dose 2 tab .ROUTE .STK-MED ONE - Progress Progress: improved, pain not gone completely, re-examined Progress Note: 12/30/23 22:15 My medical decision making and the assignment of low complexity to this patient's medical issue today is based on review of the patient's past medical history, review of the patient's medication list, review of patient drug allergy list, history of present illness and physical findings on examination. The workup today includes x-ray of the left foot and x-ray of the left ankle. 12/30/23 22:21 I interpreted the preliminary report of the patient's left ankle. No acute fracture or dislocation appreciated. I interpreted the preliminary report of the patient's left foot. Questionable abnormality in the calcaneus bone of the left foot. There is a heel spur present and soft tissue swelling laterally. I am sending the left foot x-rays to the radiologist for a final report. 12/30/23 23:49 The radiologist final report on the left foot x-rays states no acute fracture or dislocation. No osseous abnormality. Counseled pt/family regarding: diagnosis, need for follow-up, rad results Medical Desision Making - Independent Historian Additional History obtained from: Spouse - Diagnostic Testing Diagnostic test were ordered, analyzed, and reviewed by me: Yes Radiological Interpretation: Interpreted by me, Reviewed by me, Teleradiologist Report - Risk of complications The pt has a mod risk of morbidity or mortality based on: Need for prescription drug management - Departure Departure Disposition: Home Clinical Impression: Left ankle sprain, Left foot pain Condition: Stable Critical Care Time: No Referrals: CATARINO SPANN NP [Primary Care Provider] - Follow up/PCP as directed Instructions: Ankle Sprain ED Additional Instructions: Weightbearing as tolerated. Ice bath for 5 times a day for the next [address] Harper's office on 01/02/2024 and make arranges for follow-up appointment to be seen in the next 3 to 5 days. After you use your take-home Percocet pain medicine, alternate Tylenol and ibuprofen for pain control.
[2023-12-30 21:24] VITALS: RESP 20; TEMP 97.8
[2023-12-30] MEDS ORDERED: PERCOCET TABLET 5/325MG ONE ×2 (22:27→22:42)
[2023-12-30] MEDS: PERCOCET TABLET 5/325MG PO STA ×2 (22:27→22:45)
--- NOTE | 2023-12-30 23:45 | XRAY ---
CLINICAL HISTORY: fall, pain COMPARISON: 02/14/2023. TECHNIQUE: X-ray of left foot was done in [facility], Lateral and oblique view. FINDINGS: Normal intertarsal, tarsometatarsal, metatarsophalangeal, and interphalangeal joint alignment. No fracture or dislocation. Normal bone mineralization. No bone erosion or bony lesion is noted. Calcanal plantar spur and achilles calcific tendinopathy. The cortical margins of the osseous structures are within normal limits. Unremarkable soft tissue planes. IMPRESSION: 1. No acute osseous injury. 2. Calcaneal spur and Achilles calcific tendinopathy. 3. No significant interval changes. DISCLAIMER:A subtle bone abnormality or fracture may not be readily apparent on x-rays, thus clinical correlation and further imaging including follow up CT, MRI, or follow up x-rays are advised as needed. Electronically Signed by: Yonas Garcia MD. (12/30/2023 23:42:12 EDT)
[2023-12-30 23:51] VITALS: BP 110/67; PULSE 75; O2SAT 100
--- NOTE | 2023-12-31 05:40 | XRAY ---
Indication: Pain following injury. Comparison: February 14, 2023 3 view left ankle again demonstrates tiny posterior/plantar heel spurs. No new/acute bony, articular, or soft tissue abnormalities.
== END 2023-12-30 23:58 | disposition home or self-care (01) ==
LOC: ED 21:09
DX: S93.402A Sprain of unspecified ligament of left ankle, initial encounter (principal); X50.0XXA Overexertion from strenuous movement or load, initial encounter; M79.672 Pain in left foot; Z79.899 Other long term (current) drug therapy
CPT/HCPCS: 73610; 73630; 99283; A9270-GY

== ENCOUNTER 2024-12-30 21:58 | Emergency (ER) | payer OTHER ==
--- NOTE | 2024-12-30 22:03 | ERPHSYRPT ---
- History of Present Illness Time Seen by Provider: 12/30/24 22:03 Source: patient, family Exam Limitations: no limitations Physician History: This is a 34-year-old overweight white female patient of provider Koki who arrives by private vehicle accompanied by her family. Prior to arrival, patient stepped off an incline and heard/felt a "pop". She can bear weight but it hurts to do so. Patient has had surgery on the left foot in the past. 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 Patient has a history of anxiety and depression. Method of Injury: other (Stepped off an incline) Occurred: just prior to arrival Quality: constant, aching Severity of Pain-Max: mild (To moderate) Severity of Pain-Current: mild (To moderate) Lower Extremities Pain: foot: left (Dorsal aspect) Modifying Factors: Improves With: movement Associated Symptoms: other (Hurts to bear weight but can do so) Allergies/Adverse Reactions: Penicillins Allergy (Severe, Verified 12/30/24 22:03) "makes my throat swell up" Home Medications: No Reportable Medications [No Reported Medications] 12/30/24 [History] Hx Tetanus, Diphtheria Vaccination/Date Given: Yes (2 years ago) Hx Influenza Vaccination/Date Given: No Hx Pneumococcal Vaccination/Date Given: (unknown) Travel Risk - International Travel Have you traveled outside of the country in past 3 weeks: No - Emerging Infectious Disease Are you exhibiting symptoms associated with any current EIDs: No - Review of Systems Constitutional: No Symptoms Eyes: No Symptoms Ears, Nose, & Throat: No Symptoms Respiratory: No Symptoms Cardiac: No Symptoms Abdominal/Gastrointestinal: No Symptoms Genitourinary Symptoms: No Symptoms Musculoskeletal: Injury (Left foot) Skin: No Symptoms Neurological: No Symptoms Psychological: No Symptoms Endocrine: No Symptoms Hematologic/Lymphatic: No Symptoms Immunological/Allergic: No Symptoms All Other Systems: Reviewed and Negative - Past Medical History Pertinent Past Medical History: Yes Neurological History: No Pertinent History ENT History: No Pertinent History Cardiac History: Other Respiratory History: No Pertinent History Endocrine Medical History: No Pertinent History Musculoskeletal History: No Pertinent History GI Medical History: No Pertinent History History: No Pertinent History Psycho-Social History: Anxiety, Depression Female Reproductive Disorders: No Pertinent History Other Medical History: rapid heart rate - Past Surgical History Past Surgical History: Yes Neuro Surgical History: No Pertinent History Cardiac: No Pertinent History Respiratory: No Pertinent History Gastrointestinal: No Pertinent History, Hernia Repair Genitourinary: No Pertinent History Musculoskeletal: Other Female Surgical History: Section, Tubal Ligation Other Surgical History: unterine ablation, umbilical hernia repair, left foot surgery - Social History Smoking Status: Never smoker Exposure to second hand smoke: No Drug Use: none Patient Lives Alone: No - Social Determinants of Health Will the patient participate in the screening: Yes Do you worry about a steady place to live?: No In the past 12 months,have you had to go without utilities?: No Transportation Issues: No Has anyone in your support network made you feel unsafe?: No Have you or anyone in your house had to go w/o enough food: No - Nursing Vital Signs Nursing Vital Signs: Initial Vital Signs Temperature 97.3 F 12/30/24 22:04 Pulse Rate 86 12/30/24 22:04 Respiratory Rate 19 12/30/24 22:04 Blood Pressure 109/77 12/30/24 22:04 O2 Sat by Pulse Oximetry 99 12/30/24 22:04 Pain Scale Pain Intensity 7 - Physical Exam General Appearance: no apparent distress, alert, anxiety, obese Eyes, Ears, Nose, Throat Exam: normal ENT inspection, moist mucous membranes Neck Exam: normal inspection, non-tender, supple, full range of motion Cardiovascular/Respiratory Exam: chest non-tender, no respiratory distress Gastrointestinal/Abdominal Exam: non-tender Back Exam: normal inspection, normal range of motion, No CVA tenderness, No vertebral tenderness Hips Exam: bilateral: non-tender, normal inspection, normal range of motion, no evidence of injury Legs Exam: bilateral leg: non-tender, normal inspection, normal range of motion, no evidence of injury Knees Exam: bilateral knee: non-tender, normal inspection, normal range of motion, no evidence of injury Ankle Exam: bilateral ankle: non-tender, normal inspection, normal range of motion, no evidence of injury Foot Exam: right foot: non-tender, left foot: bone tenderness (Dorsal aspect), soft tissue tenderness (Dorsal aspect), bilateral foot: normal inspection, normal range of motion, no evidence of injury Neuro/Tendon Exam: normal sensation, normal motor functions, normal tendon functions, responds to pain Mental Status Exam: alert, oriented x 3, cooperative Skin Exam: normal color, warm, dry SpO2 Interpretation: normal O2 Delivery: Room Air - Course Nursing assessment & vital signs reviewed: Yes Ordered Tests: Active Orders 24 hr Category Date Time Status FOOT (MINIMUM 3 VIEWS) Stat Exams 12/30/24 22:08 Taken - Progress Progress: unchanged Progress Note: 12/30/24 22:24 My medical decision making and the assignment of low complexity of this patient's medical issue today is based on review of the patient's past medical history, review of the patient's medication list, review the patient drug allergy list, history of present illness and physical findings on examination. The workup in this patient includes x-ray of the patient's left foot. Differential diagnosis includes but is not limited to left foot sprain, left foot fracture, left foot dislocation, tendon injury 12/30/24 22:28 I interpreted the patient's preliminary left foot x-ray report. I see no acute fracture or dislocation. Counseled pt/family regarding: diagnosis, need for follow-up, rad results Medical Desision Making - Independent Historian Additional History obtained from: Family - Diagnostic Testing Diagnostic test were ordered, analyzed, and reviewed by me: Yes Radiological Interpretation: Interpreted by me - Risk of complications Low Risk: Low risk of morbidity from additional dx testing or treatment - Departure Departure Disposition: Home Clinical Impression: Sprain of left foot Condition: Stable Critical Care Time: No Referrals: CATARINO SPANN NP [Primary Care Provider, UNKNOWN] - Follow up/PCP as directed Additional Instructions: Ice pack to tender area 3 times a day for the next 3 days. If there are no contraindications, add ibuprofen 600 mg orally with food 3 times a day for the next [address] Harper's office tomorrow, 12/31/2024, to make arrangements for follow-up appointment for further evaluation and management.
[2024-12-30 22:10] VITALS: TEMP 97.3; O2SAT 99
[2024-12-30] MEDS ORDERED: PERCOCET TABLET 5/325MG ONE (22:43)
[2024-12-30] MEDS: PERCOCET TABLET 5/325MG PO STA (22:43)
[2024-12-30 23:17] VITALS: BP 114/80; PULSE 74; RESP 18
--- NOTE | 2024-12-31 08:51 | XRAY ---
Indication: Pain following injury. Comparison: December 30, 2023 3 nonweightbearing views left foot unchanged again demonstrating osteopenia and tiny heel spurs. No new/acute bony, articular, or soft tissue abnormalities.
== END 2024-12-30 23:16 | disposition home or self-care (01) ==
LOC: ED 21:58
DX: S93.602A Unspecified sprain of left foot, initial encounter (principal); X50.0XXA Overexertion from strenuous movement or load, initial encounter

== ENCOUNTER 2025-04-26 20:54 | Emergency (ER) | payer OTHER, BC ==
[2025-04-26 21:05] VITALS: TEMP 97.8
--- NOTE | 2025-04-27 00:16 | ERPHSYRPT ---
- History of Present Illness Patient Subjective Stated Complaint: c/o head injury Triage Nursing Assessment: patient brought to ED by with c/o head injury. patient stated that she closed the freezer door yesterday and an emtpy wine glass hit her in the back of the head. pain hasn't gone away, feels dizzy, nauseous, and has 8/10 pain at this time. patient's stated she had slurred speech at home, skin w/n/d, denies LOC, gait steady, vitals wnl, patient doesn't appear to be in any distress at this time. Physician History: 35-year-old female, presenting with headache after a wine bottle fell onto her head yesterday. 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 Patient says she believes empty wine bottles as decorative vases, one fell off of her fridge and hit her on the back of her head yesterday. Since then she has had a headache in the area of where the bottle hit. She she also recently increased her dose of Concentra for her ADHD last week. Reports that when she started Concentra originally she had frequent headaches so this may be a contributor. Also notes increased difficulty concentrating. Her was worried today because when they were eating dinner there was a few second episode where she had word finding difficulty. Was not truly slurring her speech. No syncopal episodes. Denies vision changes. Headache is currently mild and right parietal area. Currently denies nausea, vomiting, vertigo. No extremity weakness, dysarthria, aphasia, facial asymmetry. No fevers or neck pain. Allergies/Adverse Reactions: Penicillins Allergy (Severe, Verified 04/26/25 20:58) "makes my throat swell up" Home Medications: Methylphenidate HCl [Concerta] 27 mg PO DAILY 04/26/25 [History] Hx Tetanus, Diphtheria Vaccination/Date Given: Yes (2 years ago) Hx Influenza Vaccination/Date Given: Yes Hx Pneumococcal Vaccination/Date Given: (unknown) Travel Risk - International Travel Have you traveled outside of the country in past 3 weeks: No - Emerging Infectious Disease Are you exhibiting symptoms associated with any current EIDs: No - Past Medical History Pertinent Past Medical History: Yes Neurological History: No Pertinent History ENT History: No Pertinent History Cardiac History: Other Respiratory History: No Pertinent History Endocrine Medical History: No Pertinent History Musculoskeletal History: No Pertinent History GI Medical History: No Pertinent History History: No Pertinent History Psycho-Social History: Anxiety, Depression Female Reproductive Disorders: No Pertinent History Other Medical History: rapid heart rate - Past Surgical History Past Surgical History: Yes Neuro Surgical History: No Pertinent History Cardiac: No Pertinent History Respiratory: No Pertinent History Gastrointestinal: No Pertinent History, Hernia Repair Genitourinary: No Pertinent History Musculoskeletal: Other Female Surgical History: Section, Tubal Ligation Other Surgical History: unterine ablation, umbilical hernia repair x 2, left foot surgery - Female History Hx Last Menstrual Period: 2 weeks ago Hx Now: No - Social History Smoking Status: Never smoker Exposure to second hand smoke: No Drug Use: none - Social Determinants of Health Will the patient participate in the screening: Yes Do you worry about a steady place to live?: No Do you have any problems with any of the following?: No known problems In the past 12 months,have you had to go without utilities?: No Transportation Issues: No Has anyone in your support network made you feel unsafe?: No Have you or anyone in your house had to go w/o enough food: No - Nursing Vital Signs Nursing Vital Signs: Initial Vital Signs Temperature 97.8 F 04/26/25 20:59 Pulse Rate 95 H 04/26/25 20:59 Respiratory Rate 18 04/26/25 20:59 Blood Pressure 95/61 04/26/25 20:59 O2 Sat by Pulse Oximetry 99 04/26/25 20:59 Pain Scale Pain Intensity 2 - Physical Exam General Appearance: no apparent distress Eye Exam: PERRL/EOMI Neck Exam: normal inspection, full range of motion, No meningismus Respiratory Exam: normal breath sounds Cardiovascular Exam: regular rate/rhythm Mental Status Exam: alert, 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 Symptoms most consistent with primary headache etiologies including migraine headache, mild postconcussive syndrome, also consider medication titration side effect. Low mechanism trauma, no red flag symptoms, neurologically intact without deficits; very low suspicion for ICH, no indication for CT head at this time. No meningeal signs, neck rigidity, doubt meningitis. Generally well- appearing, symptoms reportedly mild and improved with Tylenol and Aleve at home. Offered additional pain medication and migraine cocktail here, however declined as patient states symptoms are not bothersome. No other injuries noted to head or trunk. Notably has superficial swelling to right pinky finger, which she reportedly injured several days ago and philippe taped to adjacent ring finger. Obtained plain film of the hand given localized mild ecchymosis to PIP, however plain films negative for fracture or dislocation; no superficial lacerations or abrasions. Given the nature of presenting symptoms and possibility of emergent diagnosis, admission considered and not indicated at this time. Labs and imaging reviewed and interpreted by me. Collateral historians include patient's Social determinants of health were reviewed. Reevaluation: Minimal headache on reevaluation. Discussed postconcussive syndrome versus migraine headache supportive care. Also counseled on possible medication side effect and expected course; patient will continue taking her Concentra, and monitor for new symptoms. Return precautions discussed. Discharged with ongoing supportive care and primary care follow-up. - Departure Clinical Impression: Headache, Difficulty concentrating Condition: Stable Critical Care Time: No Referrals: MICHAEL PAYNE NP [Primary Care Provider, [facility]] - Follow up/PCP as directed Instructions: Concussion, Adult (DC) Additional Instructions: Thank you for coming to the Emergency Department today. You were evaluated for headache and difficulty concentrating. It is possible that your symptoms are due to a mild concussion, however it is also possible that your increased dose of ADHD medication is also contributing. It can take time to adjust to higher doses of Concentra. You can take 600mg ibuprofen every 6 hours or tylenol 1000mg every 6 hours as needed for pain. Do not exceed 2400mg ibuprofen in a 24 hour period or 4000mg of tylenol in a 24 hour period. You can take these medications together or separately. You can alternate these medications so that you take one medication every 3 hours (ie: at noon take ibuprofen, then at 3pm take tylenol, then at 6pm take ibuprofen and so on). Your examination and tests today did not show a condition that requires you to stay in the hospital at this time. However, some problems take time to develop or may not show up on early tests. If your symptoms get worse or you have new concerns, please seek medical attention again. Please follow up with your primary care doctor within 3 days. Please return to the Emergency Department if you experience: -Nausea, vomiting, vision changes, difficulty speaking, or new weakness of your arms or legs -Worsening fevers or chills -Worsening abdominal pain, persistent vomiting, new blood in your stool, inability to keep liquids down, or severe dehydration -Severe pain or progressively worsening pain that hinders your ability to perform daily activities -New severe or concerning symptoms
[2025-04-27 01:09] VITALS: BP 118/79; PULSE 83; RESP 18
--- NOTE | 2025-04-27 08:24 | XRAY ---
Indication: 5th digit pain following injury. Comparison: None 3 view right hand obtained. Query old 5th metacarpal shaft fracture. No other bony, articular, or soft tissue abnormalities.
[2025-04-27 17:19] VITALS: O2SAT 97
== END 2025-04-27 01:10 | disposition home or self-care (01) ==
LOC: ED 20:54
DX: R51.9 Headache, unspecified (principal); R41.840 Attention and concentration deficit; M79.89 Other specified soft tissue disorders; Z79.899 Other long term (current) drug therapy